=== PATIENT | male | born 1995 | race Caucasian/White ===

== ENCOUNTER 2017-03-14 21:27 | Emergency (ER) | payer OTHER ==
[2017-03-15 01:32] VITALS: BP 137/71
== END 2017-03-15 01:32 | disposition home or self-care (01) ==
LOC: ED 21:27
DX: G43.909 Migraine, unspecified, not intractable, without status migrainosus (principal)
CPT/HCPCS: J0780; J1885

== ENCOUNTER 2018-08-20 10:43 | Emergency (ER) | payer OTHER ==
[~2018-08-20] VITALS: Ht 177.8 cm; Wt 78.5 kg
[2018-08-20 10:47] VITALS: Ht 177.8 cm; Wt 78.5 kg
[2018-08-20 12:24] VITALS: BP 110/61
== END 2018-08-20 12:24 | disposition home or self-care (01) ==
LOC: ED 10:43
DX: G43.709 Chronic migraine without aura, not intractable, without status migrainosus (principal)
CPT/HCPCS: J1885; J3030